=== PATIENT | female | born 1960 | race Caucasian/White ===

== ENCOUNTER 2017-07-08 07:07 | Emergency (ER) | payer MEDICARE, OTHER, MEDICAID ==
[2017-07-08 07:31] VITALS: BP 143/92
--- NOTE | 2017-07-08 08:04 | EDM.PDOC ---
ED HPI GENERAL MEDICAL PROBLEM - General Chief Complaint: Respiratory Problem Stated Complaint: SOB, COUGH, HEADACHE,LIGHTHEADED Time Seen by Provider: 07/08/17 07:45 Source of Information: Reports: Patient, Family History Limitations: Reports: No Limitations - History of Present Illness INITIAL COMMENTS - FREE TEXT/NARRATIVE: 57-year-old female who is been sick for 4 days, developed a deep cough and over the past 24 hours has started to develop fevers and sputum production. No nasal congestion or sore throat. She frequents the [facility] [place] her father. No nausea or vomiting or diarrhea. Onset: Gradual (over the past 4 days) Associated Symptoms: Reports: Cough, Fever/Chills, Shortness of Breath. Denies : Nausea/Vomiting - Related Data Allergies Allergy/AdvReac Type Severity Reaction Status Date / Time dimenhydrinate Allergy Hives Verified 07/08/17 07:36 [From Dramamine] erythromycin base Allergy Cannot Verified 09/22/16 09:45 Remember Sulfa (Sulfonamide Allergy Cannot Verified 09/22/16 09:45 Antibiotics) Remember valacyclovir [From Valtrex] Allergy Rash Verified 09/22/16 09:45 Home Meds: Home Meds Cholecalciferol (Vitamin D3) [Vitamin D3] 1,000 unit PO DAILY 12/11/14 [History] HCTZ/Triamterene [Maxzide 25-37.5 MG] 1 tab PO DAILY 12/11/14 [History] Loratadine [Claritin] 10 mg PO DAILY 12/11/14 [History] Multivit-Min/FA/Ca Carb/Vit K [Women's 50+ Daily Tablet] 1 tab PO DAILY [History] ALPRAZolam [Xanax] 1 tab PO DAILY PRN 09/20/16 [History] Magnesium Amino Acid Chelate [Magnesium] 1 tab PO DAILY 09/20/16 [History] oxyCODONE 1 cap PO Q6H PRN 09/20/16 [History] Ibuprofen 1 tab PO DAILY 07/08/17 [History] Social & Family History - Tobacco Use Smoking Status *Q: Never Smoker ED ROS GENERAL - Review of Systems Review Of Systems: See Below Constitutional: Reports: Fever, Chills, Malaise, Weakness, Fatigue HEENT: Denies: Rhinitis, Throat Pain Respiratory: Reports: Shortness of Breath, Cough, Sputum GI/Abdominal: Reports: No Symptoms : Reports: No Symptoms Skin: Denies: Rash Neurological: Denies: Headache ED EXAM, GENERAL - Physical Exam Exam: See Below Exam Limited By: No Limitations General Appearance: Alert, No Apparent Distress Ears: Normal TMs Throat/Mouth: Normal Inspection Head: Atraumatic Respiratory/Chest: No Respiratory Distress, Rhonchi (A few perihilar rhonchi are heard bilaterally) Cardiovascular: Regular Rate, Rhythm Extremities: No: Pedal Edema Neurological: Alert, Oriented Psychiatric: Normal Affect, Normal Mood Skin Exam: Warm, Dry Course - Vital Signs Last Recorded V/S: Last Vital Signs Temp 99.6 F 07/08/17 07:50 Pulse 85 07/08/17 07:50 Resp 16 07/08/17 07:50 BP 143/92 H 07/08/17 07:50 Pulse Ox 95 07/08/17 07:50 - Re-Assessments/Exams Free Text/Narrative Re-Assessment/Exam: 07/08/17 08:02 Discussed the symptoms of bronchitis, the likeliness of viral versus bacterial however with sputum production and fevers with her exposure to pneumonia she is very concerned about going on covered. She'll be given a course of Zithromax and encouraged to continue with conservative treatment measures such as rest and fluids. Return if worsening despite treatment. Departure - Departure Time of Disposition: 08:23 Disposition: Home, Self-Care 01 Condition: Good Clinical Impression: Bronchitis - Discharge Information Instructions: Acute Bronchitis, Adult, [id number] Referrals: Viktor Becerra MD [Primary Care Provider] - Forms: ED Department Discharge Care Plan Goals: Takes Zithromax as directed over the next 5 days. Rest and fluids are important , increase activity as tolerated. Return if worsening despite treatment.
== END 2017-07-08 08:24 | disposition home or self-care (01) ==
LOC: JP.ED 07:07
DX: J40 Bronchitis, not specified as acute or chronic (principal); Z79.899 Other long term (current) drug therapy; Z88.1 Allergy status to other antibiotic agents; Z88.2 Allergy status to sulfonamides; Z88.8 Allergy status to other drugs, medicaments and biological substances
CPT/HCPCS: 99283

== ENCOUNTER 2022-06-15 08:24 | Day surgery (SDC) | payer MEDICARE, MEDICAID ==
[~2022-06-15 08:24] MED LIST: Bupivacaine 0.5% 50 ML MDV ONE; Dexamethasone 4 MG/ML SDV ONE; Glycopyrrolate 0.2 MG/ML 5 ML MDV ONE; Lidocaine 1% with EPINEPHrine 1:100,000 50 ML MDV ONE; Neostigmine Methylsulfate 1 MG/ML 5 ML Syringe ONE; Ondansetron 4 MG/2 ML SDV ONE; Propofol 200 MG/20 ML SDV ONE; Rocuronium 50 MG/5 ML Vial ONE; Succinylcholine 200 MG/10 ML MDV ONE; fentaNYL 250 MCG/5 ML SDV ONE
[2022-06-15] MEDS ORDERED: Sodium Chloride 0.9% 1,000 ML IV SCH (09:00)
[2022-06-15] MEDS ORDERED: Indocyanine Green 25 MG SDV IV ONE (09:00)
[2022-06-15] MEDS ORDERED: metroNIDAZOLE/Normal Saline 500 MG in Premix Bag 1 BAG IV ONE (09:00)
[2022-06-15] MEDS ORDERED: ceFAZolin 2 GM in Premix Bag 1 BAG IV ONE (09:00)
[2022-06-15] MEDS ORDERED: Bupivacaine 0.5%/EPINEPHrine 1:200,000 50 ML MDV ONE (09:32)
[2022-06-15 09:33] LABS: ESTIMATED GFR 64 mL/min (>60)
[2022-06-15] MEDS ORDERED: Ondansetron 4 MG/2 ML SDV IVPUSH PRN (09:40)
[2022-06-15] MEDS ORDERED: Zolpidem 5 MG Tab PO PRN (09:40)
[2022-06-15] MEDS ORDERED: Acetaminophen/HYDROcodone 325-5 MG Tab PO PRN (09:40)
[2022-06-15] MEDS ORDERED: Benzocaine/Cetylpyridinium/Menthol Lozenge MUCMEM PRN (09:40)
[2022-06-15] MEDS ORDERED: fentaNYL 100 MCG/2 ML SDV IVPUSH PRN ×3 (09:40)
[2022-06-15] MEDS ORDERED: Docusate Sodium 100 MG Cap PO PRN (09:40)
[2022-06-15] MEDS ORDERED: Scopolamine 1.5 MG Transdermal Patch TOP SCH (10:00)
[2022-06-15] MEDS ORDERED: fentaNYL 100 MCG/2 ML SDV ONE (11:07)
[2022-06-15] MEDS ORDERED: Ketorolac 30 MG/ML SDV ONE (11:18)
[2022-06-15] MEDS ORDERED: Sugammadex Sodium 200 MG/2 ML VIAL ONE (11:43)
[2022-06-15] MEDS ORDERED: Acetaminophen/HYDROcodone 325-5 MG Tab PO ONE (13:15)
[2022-06-15 13:59] VITALS: PULSE 63
[2022-06-15 14:32] VITALS: BP 153/77
[2022-06-16] MEDS ORDERED: SCOPOLAMINE PATCH CHECK TOP SCH (09:00)
== END 2022-06-15 15:00 | disposition home or self-care (01) ==
LOC: JP.SDS 08:24
PROVIDERS: ATTEND Surgery
DX: K80.10 Calculus of gallbladder with chronic cholecystitis without obstruction (principal); I10 Essential (primary) hypertension; E55.9 Vitamin D deficiency, unspecified; F41.9 Anxiety disorder, unspecified; F32.9 Major depressive disorder, single episode, unspecified; M48.02 Spinal stenosis, cervical region; Z98.890 Other specified postprocedural states; Z79.899 Other long term (current) drug therapy; Z79.82 Long term (current) use of aspirin; Z87.891 Personal history of nicotine dependence; Z88.2 Allergy status to sulfonamides; Z88.6 Allergy status to analgesic agent; Z88.1 Allergy status to other antibiotic agents; Z88.8 Allergy status to other drugs, medicaments and biological substances; Z88.5 Allergy status to narcotic agent
CPT/HCPCS: 36415; 47600; 80053; 85027; A9270; J0171; J0330; J0690; J1100; J1885; J2405; J2704; J2710; J2795; J3010; J3490; J7030; 88304